=== PATIENT | male | born 1970 | race Two or more races ===

== ENCOUNTER 2018-02-20 19:04 | Emergency (ER) | payer MEDICAID ==
[~2018-02-20] VITALS: Ht 167.6 cm; Wt 65.8 kg
[2018-02-20 19:30] VITALS: BP 131/84
[2018-02-20] MEDS ORDERED: Dexamethasone 4mg/ml vial IM ONE (19:30)
[2018-02-20] MEDS ORDERED: Lidocaine 2% Visc 15ml soln ORAL ONE (19:30)
[2018-02-20] MEDS ORDERED: Augmentin 875mg Tab ORAL ONE (19:30)
--- NOTE | 2018-02-20 19:49 | Emergency Room Report ---
History of Present Illness General Chief Complaint: Flu Like Symptoms Source: Patient Present Illness HPI 47-year-old male presents to the emergency department complaining of 9 out of 10 in severity sore throat with associated fevers, fatigue and pain with swallowing. Patient reports his symptoms of been going on for 3 days he reports his son and daughter were ill contacts. He has been taking motrin PO regularly for fever and pain. Pt. reports pain is constant in character. He denies cough, headache, neck pain or stiffness. Denies ear pain, high fevers, severe lethargy, irritability, photophobia dehydration, N/V/D. Denies Cp, Palpitations, LOC, AMS, seizures, paresthesias, or changes in Hearing or vision , no Sudden severe YANEZ. Denies hx of smoking, asthma or COPD. Allergies: Coded Allergies: No Known Allergies (Unverified , 02/20/18) Patient History Past Medical History: see triage record Past Surgical History: none Pertinent Family History: none Reviewed Nursing Documentation: PMH: Agreed; PSxH: Agreed Nursing Documentation-PMH Past Medical History: No History, Except For Hx Diabetes: Yes Review of Systems All Other Systems: negative except mentioned in HPI Physical Exam Vital Signs Date Time Temp Pulse Resp B/P (MAP) Pulse Ox O2 Delivery O2 Flow Rate FiO2 02/20/18 19:08 99.9 112 20 136/86 100 Room Air 99.9 Sp02 EP Interpretation: reviewed, normal General Appearance: no apparent distress, alert, GCS 15, non-toxic Head: normocephalic, atraumatic Eyes: bilateral eye normal inspection, bilateral eye PERRL ENT: hearing grossly normal, normal voice, TMs + canals normal, uvula midline, moist mucus membranes, pharyngeal erythema, tonsillar exudate Neck: full range of motion, no meningismus, no bony tend Respiratory: chest non-tender, lungs clear, normal breath sounds, speaking full sentences Cardiovascular #1: regular rate, rhythm, tachycardia - 112 Gastrointestinal: normal bowel sounds, non tender, soft Musculoskeletal: back normal, gait/station normal, normal range of motion, non- tender Neurologic: alert, oriented x3, responsive, motor strength/tone normal, sensory intact, speech normal, grossly normal Psychiatric: judgement/insight normal Skin: normal color, no rash, warm/dry, well hydrated Lymphatic: no adenopathy Medical Decision Making PA Attestation Dr. Mathur is my supervising Physician whom patient management has been discussed with. Diagnostic Impression: Primary Impression: Pharyngitis, acute Qualified Codes: J02.0 - Streptococcal pharyngitis ER Course 47-year-old male presents to the emergency department complaining of 9 out of 10 in severity sore throat with associated fevers, fatigue and pain with swallowing. Patient reports his symptoms of been going on for 3 days he reports his son and daughter were ill contacts. He has been taking motrin PO regularly for fever and pain. Pt. reports pain is constant in character. He denies cough, headache, neck pain or stiffness. Denies ear pain, high fevers, severe lethargy, irritability, photophobia dehydration, N/V/D. Denies Cp, Palpitations, LOC, AMS, seizures, paresthesias, or changes in Hearing or vision , no Sudden severe YAENZ. Denies hx of smoking, asthma or COPD. Ddx considered but are not limited to: pharyngitis, strep, [employer], ludwigs angina, URI Vital signs: are WNL, pt. is afebrile H&PE are most consistent with: pharyngitis presumed strep . ORDERS: None required at this time as the diagnosis is clinical ED INTERVENTIONS: -Viscous Lidocaine PO -Decadron IM -Augmentin PO DISCHARGE: At this time pt. is stable for d/c to home. Will provide printed patient care instructions, and any necessary prescriptions. Care plan and follow up instructions have been discussed with the patient prior to discharge. Last Vital Signs Date Time Temp Pulse Resp B/P (MAP) Pulse Ox O2 Delivery O2 Flow Rate FiO2 02/20/18 19:08 99.9 112 20 136/86 100 Room Air 99.9 Disposition: HOME, SELF-CARE Condition: Stable Scripts Acetaminophen* (TYLENOL EXTRA STRENGTH*) 500 Mg Tablet 500 MG ORAL Q8H, #20 TAB 0 Refills Prov: Ashley Verdin 02/20/18 Lidocaine HCl 2% Viscous (Lidocaine HCl 2% Viscous) 100 Ml Solution 15 ML ORAL QID, #220 ML Prov: Ashley Verdin 02/20/18 Amoxicillin/Potassium Clav 875-125* (AUGMENTIN 875-125 TABLET*) 1 Each Tablet 1 TAB ORAL TWICE A DAY for 10 Days, #20 TAB Prov: Ashley Verdin 02/20/18 Patient Instructions: Strep Throat, [id number] Additional Instructions: Take medications as directed. Follow up with a Primary Care Provider in 3-5 days, even if your symptoms have resolved. --Please review list of primary care clinics, if you do not already have a primary care provider Return sooner to ED if new symptoms occur, or current symptoms become worse. - Please note that this Emergency Department Report was dictated using [employer] technology software, occasionally this can lead to erroneous entry secondary to interpretation by the dictation equipment. Ashley Verdin February 20, 2018 19:49
[2018-02-20] MEDS ORDERED: AUGMENTIN 875-1 EAC1 ORAL ×2 (19:51→19:54)
[2018-02-20] MEDS ORDERED: LIDOCAINE VISC100 ML ORAL ×2 (19:51→19:54)
[2018-02-20] MEDS ORDERED: TYLENOL EXTRA500 MG ORAL ×2 (19:51→19:54)
[2018-02-20 20:08] VITALS: BP 136/86
== END 2018-02-20 20:08 | disposition home or self-care (01) ==
LOC: EMR 19:48
DX: J02.9 Acute pharyngitis, unspecified (principal); E11.9 Type 2 diabetes mellitus without complications